=== PATIENT | male | born 1980 | race Hispanic/Latino ===

== ENCOUNTER 2019-12-03 17:30 | Emergency (ER) | payer OTHER ==
[~2019-12-03 17:30] MED LIST: Iopamidol-370 76% 500 ML 1 ML ONE
[2019-12-03 18:04] LABS: Bacteria/HPF None Seen HPF (None Seen); Bilirubin Negative (Negative); Blood, Urine Negative (Negative); Clarity Clear (Clear); Glucose, Urine (Dipstick) Normal (Negative); Ketone, Urine 40 mg/dL (Negative); Leukocyte Negative Leu/uL (Negative); Nitrite Negative (Negative); Protein, Urine (Dipstick) 50 mg/dL (Neg-Trace); RBC/HPF 0-3 HPF (0-3); Specific Gravity, Urine 1.034 (1.002-1.036); Squamous Epithelial 0-3 HPF (0-3); Urobilinogen Normal mg/dL (Less than 2); WBC/HPF 0-3 HPF (0-3)
[2019-12-03 18:06] LABS: #Monocytes 0.4 thou/uL (0.11-0.59); #Neutrophils 4.7 thou/uL (1.40-6.50); %Basophils 0.3 % (0.0-1.0); %Eosinophils 0.2 % (0.0-10.0); %Lymphocytes 16.5 % (21.0-51.0); %Monocytes 6.2 % (0.0-10.0); %Neutrophils 76.8 % (42.0-75.0); Hemoglobin 15.6 g/dL (14.0-18.0); Mean Corpuscular HGB CONC 34.7 g/dL (32.0-36.0); Mean Corpuscular Hemoglobin 30.7 pg (27.0-31.0); Mean Corpuscular Volume 88.4 fL (78.0-98.0); Mean Platelet Volume 9.3 fL (7.4-10.4); Platelet Count 145 thou/uL (130-400); RBC Distribution Width 11.5 % (11.5-14.5); Red Blood Cell (RBC) Count 5.07 mill/uL (4.70-6.10); White Blood Cell (WBC) Count 6.1 thou/uL (4.8-10.8)
[2019-12-03 18:21] LABS: ALT (SGPT) 95 U/L (8-55); AST (SGOT) 47 U/L (5-34); Albumin 4.1 g/dL (3.5-5.0); Alkaline Phosphatase 90 U/L (40-110); Anion Gap 13 mmol/L (10-20); BUN (Urea Nitrogen) 12 mg/dL (8.9-20.6); Bilirubin, Total 0.7 mg/dL (0.2-1.2); Calc. Creatinine Clearance 0 mL/min (70-130); Calcium 8.5 mg/dL (7.8-10.44); Carbon Dioxide 24 mmol/L (22-29); Chloride 104 mmol/L (98-107); Estimated GFR-MDRD 89; Globulin 3.1 g/dL (2.4-3.5); Glucose 130 mg/dL (70-105); Potassium 3.7 mmol/L (3.5-5.1); Protein, Total 7.2 g/dL (6.0-8.3); Sodium 137 mmol/L (136-145)
[2019-12-03] MEDS ORDERED: Ondansetron PF 4 MG/2 ML Vial ONE (18:32)
[2019-12-03] MEDS ORDERED: Mag-Al 1200 mg/1200 mg/30 ML UDCUP ONE (18:32)
[2019-12-03] MEDS ORDERED: Pantoprazole 40 MG VIAL ONE (18:32)
[2019-12-03] MEDS ORDERED: Lidocaine Viscous Sol 2% 15 ml UD Cup ONE (18:32)
--- NOTE | 2019-12-03 19:22 | CT ---
EXAM: ABDOMEN AND PELVIC CT SCAN WITH IV CONTRAST: 12/03/19 HISTORY: COVID-19 positive patient with abdominal pain. FINDINGS: The lung bases demonstrate numerous scattered areas of ground glass opacity changes involving right a nd left lower lobes and visualized portion of the middle lobe and lingula which certainly could be a finding seen with COVID pneumonia. No pleural effusion. The liver, gallbladder, pancreas, spleen, adr enal glands, are unremarkable. No renal calculus or obstruction. No CT evidence for acute appendic itis. Abnormal colonic wall thickening involving almost the entire transverse colon from the region near the hepatic flexure all the way into the splenic flexure, evidence for nonspecific colitis. No a bscess or abnormal fluid collection within the abdomen or pelvis. IMPRESSION: Evidence for bilateral ground glass opacity changes within the right and left lower lobes and visuali zed middle lobe and lingula which certainly can be seen with COVID pneumonia. Long segment of abnorma l bowel wall thickening involving almost the entire transverse colon, evidence for nonspecific coliti s. POS: RRE
== END 2019-12-03 22:13 | disposition home or self-care (01) ==
LOC: ERS 17:30
DX: U07.1 COVID-19 (principal); K52.9 Noninfective gastroenteritis and colitis, unspecified; E78.5 Hyperlipidemia, unspecified; Z79.899 Other long term (current) drug therapy
CPT/HCPCS: 74177; 80053; 81003; 81015; 83690; 84484; 85025; 96361; 96372; 96374; 96375; C9113; J0500; J2405; Q9967